=== PATIENT | female | born 1980 | race Caucasian/White ===

== ENCOUNTER 2017-01-02 21:38 | Emergency (ER) | payer SELFPAY ==
[~2017-01-02] VITALS: Ht 162.6 cm; Wt 87.3 kg
[~2017-01-02 21:38] MED LIST: ALLEGRA D 12 HO1 TER PO; ALLEGRA-D 12 HO1 TER PO; ASPIRIN 32325 MG/TAB PO; B COMPLEX PO; CLARITIN D TAB1 TAB PO; CLARITIN10 MG PO; CYMBALTA 30MG30 MG PO; FISH OIL CONCEN1 SGL PO; FLAX SEED PO; FLEXERIL10 MG PO; MELOXICAM PO; MULTIPLE VITAMI1 CAP PO; MVI PO; PERCOCET 5/321 UDTAB PO; PROVENTIL0.09 MG/A1 IH; PROZAC40 MG PO; SINGULAIR10 MG PO; TRAZODO50 MG PO; ZITHROMAX Z PA250 MG PO
[2017-01-02 21:43] VITALS: TEMP 98.5
[2017-01-02 22:20] LABS: BASO # 0.1 (0.0-0.2); BASO % 0.7 % (0.0-2.0); EOS # 0.2 (0.0-0.7); EOS % 1.9 % (0-4.0); GRAN # 8.6 (1.4-6.5); GRAN % 67.7 % (42.2-75.2); HEMATOCRIT 44.9 % (37.0-47.0); HEMOGLOBIN 14.9 g/dl (12.5-16.0); LYMPH # 3.1 (1.2-3.4); LYMPH % 24.1 % (20.0-51.0); MEAN CELL VOLUME 88 fl (80.0-100.0); MEAN CORPUSCULAR HEMOGLOBIN 29 pg (27.0-31.0); MEAN CORPUSCULAR HGB CONC 33 g/dl (33.0-37.0); MEAN PLATELET VOLUME 9.3 fl (7.4-10.4); MONO # 0.7 (0.1-0.6); MONO % 5.4 % (1.7-9.3); PLATELET COUNT 296 K/mm3 (130-400); RED BLOOD COUNT 5.12 M/mm3 (4.10-5.30); REDCELL DISTRIBUTION WIDTH-CV 13.2 % (11.5-14.5); WHITE BLOOD COUNT 12.7 K/mm3 (4.8-10.8)
[2017-01-02 22:33] LABS: ADJUSTED CALCIUM 8.8 mg/dL (8.4-10.2); ALANINE AMINOTRANSFERASE 23 U/L (9-52); ALKALINE PHOSPHATASE 67 U/L (50-136); ANION GAP 8 mmol/L (7-16); BILIRUBIN,TOTAL 0.5 mg/dL (0.0-1.0); BLOOD UREA NITROGEN 14 mg/dL (7-17); CALCIUM 8.8 mg/dL (8.4-10.2); CARBON DIOXIDE 22 mmol/L (22-30); CHLORIDE 106 mmol/L (98-107); CREATININE, serum 0.68 mg/dL (0.52-1.25); GLUCOSE 83 mg/dL (74-106); POTASSIUM 3.9 mmol/L (3.4-5.0); SODIUM 136 mmol/L (137-145); TOTAL PROTEIN 6.9 gm/dL (6.4-8.2)
[2017-01-02 22:34] LABS: C-REACTIVE PROTEIN < 0.5 mg/dL (0.0-0.9)
[2017-01-02 22:42] LABS: ERYTHROCYTE SEDIMENTATION RATE 1 mm/hr (0-20)
[2017-01-02] MEDS ORDERED: PREDNISONE20 MG PO (22:43)
[2017-01-02 23:28] VITALS: BP 121/75; PULSE 91
== END 2017-01-02 23:28 | disposition home or self-care (01) ==
LOC: COL.ER 21:38
PROVIDERS: Emergency Medicine
DX: L50.9 Urticaria, unspecified (principal); F17.210 Nicotine dependence, cigarettes, uncomplicated; I10 Essential (primary) hypertension; G43.909 Migraine, unspecified, not intractable, without status migrainosus; Z90.721 Acquired absence of ovaries, unilateral; Z90.49 Acquired absence of other specified parts of digestive tract; Z86.19 Personal history of other infectious and parasitic diseases; Z98.890 Other specified postprocedural states
CPT/HCPCS: J7512